=== PATIENT | male | born 1995 | race Two or more races ===

== ENCOUNTER 2020-04-06 16:00 | Emergency (ER) | payer MEDICAID ==
[~2020-04-06] VITALS: Ht 170.2 cm; Wt 73.0 kg
[2020-04-06] MEDS ORDERED: ESCI20TA PO (16:11)
[2020-04-06] MEDS ORDERED: TRAZ-252 PO (16:11)
[2020-04-06] MEDS ORDERED: CITALOPRAM HYDROBROMIDE 10MG TABLET PO ONE (17:30)
[2020-04-06 17:41] LABS: BASOPHILS % 0.6 % (0.0-2.0); HEMATOCRIT. 42.1 % (42.0-52.0); HEMOGLOBIN. 14.5 g/dL (14.0-18.0); LYMPHOCYTES % 27.5 % (20.0-50.0); MEAN CORPUSCULAR HEMOGLOBIN 30.4 pg (28.0-32.0); MEAN CORPUSCULAR VOLUME 88.2 fL (80.0-94.0); MEAN PLATELET VOLUME 7.4 fl (7.4-10.4); MONOCYTES % 8.5 % (2.0-8.0); NEUTROPHILS % 61.4 % (40.0-76.0); PLATELET 302 x1000/uL (130-400); RED BLOOD CELL COUNT 4.77 mill/uL (4.7-6.1)
[2020-04-06 17:42] LABS: CHLORIDE 105 mEq/L (98-107)
[2020-04-06 17:47] LABS: ETHANOL BLOOD < 10 mg/dL
[2020-04-06] MEDS ORDERED: LORAZEPAM 1MG TABLET PO ONE (20:15)
[2020-04-06 20:34] LABS: CLARITY URINE CLEAR (CLEAR); COLOR URINE ORANGE (YELLOW); KETONES URINE 2+ (NEGATIVE); LEUKOCYTE ESTERASE URINE 1+ (NEGATIVE); NITRITE URINE POSITIVE (NEGATIVE); OCCULT BLOOD URINE NEGATIVE (NEGATIVE); PROTEIN URINE 1+ (NEGATIVE); SPECIFIC GRAVITY URINE 1.039 (1.005-1.030)
[2020-04-06 20:58] LABS: *AMPHETAMINES SCREEN URINE PRESUMTIVE POSITIVE (NEGATIVE)
[2020-04-06 20:59] LABS: *BARBITURATES SCREEN URINE NEGATIVE (NEGATIVE); *BENZODIAZEPINES SCREEN URINE NEGATIVE (NEGATIVE); *COCAINE SCREEN URINE NEGATIVE (NEGATIVE); CANNABINOID URINE SCREEN PRESUMTIVE POSITIVE (NEGATIVE); METHADONE URINE SCREEN NEGATIVE (NEGATIVE); OPIATES URINE SCREEN NEGATIVE (NEGATIVE); PHENCYCLIDINE URINE SCREEN NEGATIVE (NEGATIVE)
[2020-04-06 21:00] VITALS: BP 103/50
[2020-04-06] MEDS ORDERED: TRAZODONE HCL 50MG TABLET PO SCH (21:00)
== END 2020-04-06 17:28 | disposition home or self-care (01) ==
LOC: ER 16:00
DX: F15.151 Other stimulant abuse with stimulant-induced psychotic disorder with hallucinations (principal); F31.89 Other bipolar disorder; Z91.14 Patient's other noncompliance with medication regimen; R45.851 Suicidal ideations
CPT/HCPCS: 36415; 80053; 80305; 80320; 81003; 85025; 99283; G0480